=== PATIENT | female | born 2000 | race Caucasian/White ===

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

== ENCOUNTER 2021-01-06 04:18 | Observation (INO) | payer OTHER ==
[2021-01-06 04:46] LABS: Amorphous Sediment,Urine Rare /hpf; Appearance,Urine Cloudy (Clear); Bacteria,Urine Rare /hpf; Bilirubin,Urine Negative (Negative); Blood,Urine Trace (Negative); Color,Urine Light Yellow; Glucose,Urine (UA) Negative (Negative); Ketones,Urine Negative (Negative); Leukocyte Esterase,Urine Large (Negative); Mucus,Urine Rare /hpf; Nitrite,Urine Negative (Negative); PH, Urine 5.5 (5.0-8.0); Protein,Urine Negative (Negative); RBC,Urine 4 /hpf (0-5); Specific Gravity,Urine 1.018 (1.001-1.035); Squamous Epithelial Cell,Urine 5 /hpf (0-4); Urobilinogen,Urine <2.0 mg/dL (<2.0); WBC,Urine 28 /hpf (0-5)
[2021-01-06] MEDS ORDERED: BUTORPHANOL 1 MG/ML 1 ML VIAL IV PRN (04:52)
[2021-01-06] MEDS ORDERED: ONDANSETRON 4 MG/2 ML VIAL IVP STA (04:54)
[2021-01-06] MEDS: LACTATED RINGERS 1,000 ML IV SCH ×3 (05:05→14:39)
--- NOTE | 2021-01-06 06:07 | US ---
EXAMINATION TYPE: US kidneys/renal and bladder DATE OF EXAM: 01/06/2021 COMPARISON: NONE CLINICAL HISTORY: rule out kidney stones. Pt states approx 21 weeks , having increased urinat ion and lower ABD pain EXAM MEASUREMENTS: Right Kidney: 12.0 x 4.8 x 5.3 cm Left Kidney: 10.7 x 5.0 x 4.7 cm Right Kidney: Mild hydronephrosis Left Kidney: Appeared wnl Bladder: Visualized portions appeared wnl, pt voided prior to exam Bilateral Jets seen: No Results given to L&D at time of exam There is and mild right-sided pyelocaliectasis. No left-sided hydronephrosis . No masses are identif ied images saved. The urinary bladder is satisfactorily distended. Bilateral ureteral jets are not seen. IMPRESSION: Mild right-sided hydronephrosis.
[2021-01-06] MEDS: ACETAMINOPHEN TAB 500 MG TAB PO PRN ×3 (09:02→20:38)
[2021-01-06 10:31] LABS: Basophils % (A) 0 %; Eosinophils % (A) 0 %; HCT 31.4 % (34.0-46.0); HGB 10.8 gm/dL (11.4-16.0); Lymphocytes # (A) 1.5 k/uL (1.0-4.8); Lymphocytes % (A) 12 %; MCH 31.4 pg (25.0-35.0); MCHC 34.5 g/dL (31.0-37.0); Mean Platelet Volume 7.9; Monocytes # (A) 0.4 k/uL (0-1.0); Monocytes % (A) 3 %; Neutrophils # (A) 11.1 k/uL (1.3-7.7); Neutrophils % (A) 84 %; Platelet Count 233 k/uL (150-450); RBC 3.45 m/uL (3.80-5.40); RDW 13.2 % (11.5-15.5); WBC 13.2 k/uL (4.0-11.0)
--- NOTE | 2021-01-06 12:48 | P.HPOB ---
History of Present Illness H&P Date: 01/06/21 Chief Complaint: suprapubic pain19 20 year old presents at almost 22 weeks with suprapubic pain, flank pain and groin discomfort. Her urine showed RBCs and WBCs and bacteria. This was sent for culture. She has no fever but does have a slightly elevated wbc count. admitted for pain control and IV antibiotics. Review of Systems All systems: negative Constitutional: Denies chills, Denies fever Eyes: denies blurred vision, denies pain Ears, nose, mouth and throat: Denies headache, Denies sore throat Cardiovascular: Denies chest pain, Denies shortness of breath Respiratory: Denies cough Gastrointestinal: Denies abdominal pain, Denies diarrhea, Denies nausea, Denies vomiting Genitourinary: Denies dysuria, Denies hematuria Musculoskeletal: Denies myalgias Integumentary: Denies pruritus, Denies rash Neurological: Denies numbness, Denies weakness Psychiatric: Denies anxiety, Denies depression Endocrine: Denies fatigue, Denies weight change Past Medical History Past Medical History: Asthma Additional Past Medical History / Comment(s): frequent syncope History of Any Multi-Drug Resistant Organisms: None Reported Past Surgical History: Ear Surgery Smoking Status: Vaper Medications and Allergies Home Medications Medication Instructions Recorded Confirmed Type Pnv No.95/Ferrous Fum/Folic AC 1 tab PO DAILY 01/06/21 01/06/21 History [ Multivitamin Tablet] Allergies Allergy/AdvReac Type Severity Reaction Status Date / Time amoxicillin [Amoxicillin] Allergy Rash/Hives Verified 01/06/21 04:25 Exam Osteopathic Statement: *. No significant issues noted on an osteopathic structural exam other than those noted in the History and Physical/Consult. Vital Signs Temp Pulse Resp BP Pulse Ox 01/06/21 07:45 98.0 F 75 16 101/61 01/06/21 04:39 97.9 F 72 15 137/85 98 Intake and Output 01/05/21 01/06/21 01/06/21 22:59 06:59 14:59 Other: Weight 68.946 kg HEart: RRR Lungs: CTAB Abdomen: soft, tender in the bilateral groin, minimal flank pain and +suprapubic tenderness with palpation. Extremeties: neg amadeo's Results Result Diagrams: 01/06/21 08:12 Abnormal Lab Results - Last 24 Hours (Table) 01/06/21 01/06/21 Range/Units 04:28 08:12 WBC 13.2 H (4.0-11.0) k/uL RBC 3.45 L (3.80-5.40) m/uL Hgb 10.8 L (11.4-16.0) gm/dL Hct 31.4 L (34.0-46.0) % Neutrophils # 11.1 H (1.3-7.7) k/uL Urine Appearance Cloudy H (Clear) Urine Blood Trace H (Negative) Ur Leukocyte Esterase Large H (Negative) Urine WBC 28 H (0-5) /hpf Ur Squamous Epith Cells 5 H (0-4) /hpf Amorphous Sediment Rare H (None) /hpf Urine Bacteria Rare H (None) /hpf Urine Mucus Rare H (None) /hpf Assessment and Plan (1) Current Visit: Yes Status: Acute Code(s): Z34.90 - ENCNTR FOR SUPRVSN OF NORMAL , UNSP, UNSP TRIMESTER SNOMED Code(s): 23811517 (2) Pyelonephritis Current Visit: Yes Status: Acute Code(s): N12 - TUBULO-INTERSTITIAL NEPHRITIS, NOT SPCF ACUTE OR CHRONIC SNOMED Code(s): 42200515 Plan: 1. cont IV fluid 2. IV ancef 1gm q 6 hrs 3. reg diet 4. tylenol for pain 5. FHT q shift
[2021-01-06] MEDS ORDERED: ONDANSETRON 4 MG/2 ML VIAL IVP PRN (19:15)
[2021-01-07] MEDS: LACTATED RINGERS 1,000 ML IV SCH (00:04)
[2021-01-07 00:10] VITALS: BP 116/56; PULSE 73; RESP 16; TEMP 98.2
[2021-01-07] MEDS: ACETAMINOPHEN TAB 500 MG TAB PO PRN (02:34)
[2021-01-07 06:46] LABS: Basophils % (A) 0 %; Eosinophils # (A) 0.2 k/uL (0-0.7); Eosinophils % (A) 2 %; HCT 30.9 % (34.0-46.0); HGB 10.7 gm/dL (11.4-16.0); Lymphocytes # (A) 2.6 k/uL (1.0-4.8); Lymphocytes % (A) 28 %; MCHC 34.7 g/dL (31.0-37.0); MCV 92.1 fL (80.0-100.0); Mean Platelet Volume 7.4; Monocytes # (A) 0.5 k/uL (0-1.0); Monocytes % (A) 6 %; Neutrophils % (A) 63 %; Platelet Count 218 k/uL (150-450); RBC 3.36 m/uL (3.80-5.40); RDW 13.3 % (11.5-15.5); WBC 9.6 k/uL (4.0-11.0)
--- NOTE | 2021-01-07 07:46 | P.DS ---
Providers Date of admission: 01/06/21 06:24 Expected date of discharge: 01/07/21 Attending physician: Carlos Alberto Harper Primary care physician: Stated None - Discharge Diagnosis(es) (1) Current Visit: Yes Status: Acute (2) Pyelonephritis Current Visit: Yes Status: Acute Hospital Course: 20-year-old presented at around 22 weeks gestation complaining of suprapubic, running, flank pain. She also had a white count and evidence of UTI in her urine. Urine was sent for culture patient was started on IV Ancef. After 24 hours of IV antibiotics she's feeling much better. heart tones consistently 140-150. Patient will be discharged home on oral Keflex and was instructed to finish all her antibiotics. She sees me in one week in the office. Plan - Discharge Summary New Discharge Prescriptions: New Cephalexin [Keflex] 500 mg PO Q6HR 1 Days #7 cap No Action Pnv No.95/Ferrous Fum/Folic AC [ Multivitamin Tablet] 1 tab PO DAILY Discharge Medication List Pnv No.95/Ferrous Fum/Folic AC [ Multivitamin Tablet] 1 tab PO DAILY 01/06/21 [History] Cephalexin [Keflex] 500 mg PO Q6HR 1 Days #7 cap 01/07/21 [Rx] Follow up Appointment(s)/Referral(s): Jesica Serna DO [Doctor of Osteopathic Medicine] - 1 Week Discharge Disposition: HOME SELF-CARE
--- NOTE | 2021-01-07 07:53 | P.MSEPDOC ---
Presenting Problems - Arrival Data Date of Arrival on Unit: 01/06/21 Time of Arrival on Unit: 04:18 Mode of Transport: Portable - Complaint OB-Reason for Admission/Chief Complaint: Acute Nausea/Vomiting, Pain Comment: Pt states constant pain that started an hour ago. Rates it 03/11 Medical History - Information : 1 Para: 0 Term: 0 : 0 Abortions: Spontaneous or Elective: 0 Number of Living Children: 0 - Gestational Age Gestational Age by RERE (wks/days): 21 Weeks and 6 Days Review of Systems - Review of Systems Constitutional: No problems Breast: No problems ENT: No problems Cardiovascular: No problems Respiratory: No problems Gastrointestinal: No problems Genitourinary: Urgency Musculoskeletal: No problems Neurological: No problems Skin: No problems Vital Signs - Temperature Temperature: 98.2 F Temperature Source: Oral - Pulse Pulse Oximetery Pulse Rate: 73 Pulse Assessment Method: Automatic Cuff - Respirations Respiratory Rate: 16 Oxygen Delivery Method: Room Air O2 Sat by Pulse Oximetry: 100 - Blood Pressure Right Arm Blood Pressure: 116/56 Blood Pressure Mean: 76 Blood Pressure Source: Automatic Cuff Medical Screen Scoring - Assessment - Baby A Baseline FHR: 140 Physician Notification - Physician Notified Physician: Carlos Alberto Harper Disposition - Disposition OB Disposition: Admit, Observe I agree with the RN Medical Screening Exam: Yes Case reviewed; plan agreed upon as documented in EMR&OBIX.: Yes Diagnosis: URINARY TRACT INFECTION, SITE NOT SPECIFIED
== END 2021-01-07 09:23 | disposition home or self-care (01) ==
LOC: FBPOP 04:18 → 4FBP 06:24 → INTOOBSV 06:24 → UNDODISIN 01-07 09:23
PROVIDERS: ADMIT Obstetrics & Gynecology; ATTEND Obstetrics & Gynecology
DX: O23.02 Infections of kidney in pregnancy, second trimester (principal); Z3A.21 21 weeks gestation of pregnancy; O99.512 Diseases of the respiratory system complicating pregnancy, second trimester; N13.30 Unspecified hydronephrosis; J45.909 Unspecified asthma, uncomplicated; O99.332 Smoking (tobacco) complicating pregnancy, second trimester; O26.892 Other specified pregnancy related conditions, second trimester; F17.290 Nicotine dependence, other tobacco product, uncomplicated; Z88.0 Allergy status to penicillin; Z86.79 Personal history of other diseases of the circulatory system; Z98.890 Other specified postprocedural states
CPT/HCPCS: 96361; 96365; 96366; 96375; 85025 ×2; 81001; 87086; 76770; G0463; G0378 ×2; J0595; J2405; J0690 ×2; 96374; 99214

== ENCOUNTER 2021-02-26 12:01 | Outpatient (CLI) | payer OTHER ==
[2021-02-26 13:15] LABS: Appearance,Urine Clear (Clear); Bacteria,Urine Rare /hpf; Bilirubin,Urine Negative (Negative); Blood,Urine Negative (Negative); Color,Urine Yellow; Glucose,Urine (UA) Negative (Negative); Hyaline Casts,Urine 1 /lpf (0-2); Ketones,Urine 2+ (Negative); Leukocyte Esterase,Urine Moderate (Negative); Mucus,Urine Rare /hpf; Nitrite,Urine Negative (Negative); PH, Urine 5.5 (5.0-8.0); Protein,Urine Negative (Negative); RBC,Urine <1 /hpf (0-5); Specific Gravity,Urine 1.021 (1.001-1.035); Squamous Epithelial Cell,Urine 3 /hpf (0-4); Urobilinogen,Urine <2.0 mg/dL (<2.0); WBC,Urine 2 /hpf (0-5)
[2021-02-26 13:53] VITALS: BP 117/58; PULSE 83; RESP 16; TEMP 97.2
--- NOTE | 2021-03-08 13:10 | P.MSEPDOC ---
Presenting Problems - Arrival Data Date of Arrival on Unit: 02/26/21 Time of Arrival on Unit: 12:01 Mode of Transport: Ambulatory - Complaint OB-Reason for Admission/Chief Complaint: Pain Medical History - Information : 1 Para: 0 Term: 0 : 0 Abortions: Spontaneous or Elective: 0 Number of Living Children: 0 - Gestational Age Gestational Age by RERE (wks/days): 29 Weeks and 1 Days Review of Systems - Review of Systems Constitutional: No problems Breast: No problems ENT: No problems Cardiovascular: No problems Respiratory: No problems Gastrointestinal: No problems Genitourinary: No problems Musculoskeletal: No problems Neurological: No problems Skin: No problems Vital Signs - Temperature Temperature: 97.2 F Temperature Source: Temporal Artery Scan - Pulse Right Brachial Pulse Rate: 83 Pulse Assessment Method: Automatic Cuff - Respirations Respiratory Rate: 16 Oxygen Delivery Method: Room Air O2 Sat by Pulse Oximetry: 96 - Blood Pressure Right Arm Blood Pressure: 117/58 Blood Pressure Mean: 77 Blood Pressure Source: Automatic Cuff Medical Screen Scoring - Assessment - Baby A Baseline FHR: 125 Heart Rate - NICHD Category: Category I (Normal) NST: Reactive Physician Notification - Physician Notified Physician Notified Date: 02/26/21 Physician Notified Time: 13:38 Physician: Carlos Alberto Harper New Order Received: Yes - Notification Comment Comment: Dr. Harper called and given report on pt. aware of pt complaints. VS WNL. Reactive NST. Orders recieved to send UA and to call with results. Maternal Triage Index - Urgent/Priority 2 Urgent Priority 2: Yes Provider Notified: Carlos Alberto Harper Provider Notified Time: 12:41 Criteria Met for Priority 2: Abdominal pain. Pain 7/10. Disposition - Disposition OB Disposition: Discharge to home Discharge Date: 02/26/21 Discharge Time: 13:45 I agree with the RN Medical Screening Exam: Yes Case reviewed; plan agreed upon as documented in EMR&OBIX.: Yes Diagnosis: RELATED CONDITIONS, UNSPECIFIED, THIRD TRIMESTER
== END 2021-02-26 13:45 | disposition home or self-care (01) ==
LOC: FBPOP 12:01
PROVIDERS: ATTEND Obstetrics & Gynecology
DX: O26.93 Pregnancy related conditions, unspecified, third trimester (principal); Z3A.29 29 weeks gestation of pregnancy
CPT/HCPCS: 59025; 81001; G0463; 99213

== ENCOUNTER 2021-04-05 05:00 | Outpatient (CLI) | payer OTHER ==
[2021-04-05 05:54] VITALS: BP 119/68; PULSE 70; RESP 16; TEMP 96.8
--- NOTE | 2021-04-05 07:01 | P.MSEPDOC ---
Presenting Problems - Arrival Data Date of Arrival on Unit: 04/05/21 Time of Arrival on Unit: 05:00 Mode of Transport: Wheelchair - Complaint OB-Reason for Admission/Chief Complaint: Decreased Movement Comment: Patient arrives to triage and states she was at work and squatting around 0350. and got a sharp pain in her left lower abdomen. Pain lasted for ten minutes. Once the pain went away, she was unable to feel the baby move. Patient denies bleeding and leaking fluid. Pain is currently 0/10 but states she still has not felt the baby move. Medical History - Information : 1 Para: 0 Term: 0 : 0 Abortions: Spontaneous or Elective: 0 Number of Living Children: 0 - Gestational Age Gestational Age by RERE (wks/days): 34 Weeks and 4 Days Review of Systems - Review of Systems Constitutional: No problems Breast: No problems ENT: No problems Cardiovascular: No problems Respiratory: No problems Gastrointestinal: No problems Genitourinary: No problems Musculoskeletal: No problems Neurological: No problems Skin: No problems Vital Signs - Temperature Temperature: 96.8 F Temperature Source: Temporal Artery Scan - Pulse Right Brachial Pulse Rate: 70 Pulse Assessment Method: Automatic Cuff - Respirations Respiratory Rate: 16 Oxygen Delivery Method: Room Air O2 Sat by Pulse Oximetry: 100 - Blood Pressure Right Arm Blood Pressure: 119/68 Blood Pressure Mean: 85 Blood Pressure Source: Automatic Cuff Medical Screen Scoring - Assessment - Baby A Baseline FHR: 120 Heart Rate - NICHD Category: Category I (Normal) NST: Reactive Physician Notification - Physician Notified Physician Notified Date: 04/05/21 Physician Notified Time: 05:27 Physician: Elijah Morgan New Order Received: Yes - Notification Comment Comment: Dr. Morgan called. RN reported that patient had not felt movement since. squatting at work and getting a sharp pain in the lower left abdomen, which has since resolved. Patient states infant is usually very active at this time and she was scared so she came in. heart tones are catergory I, baseline of 120, reactive NST. Patients vital signs WNL. Patient is to be discharged home with instructions to keep follow up appt. Patient updated and in agreement. Maternal Triage Index - Urgent/Priority 2 Urgent Priority 2: Yes Provider Notified: Elijah Morgan Provider Notified Time: 05:27 Criteria Met for Priority 2: c/o decreased movement Disposition - Disposition OB Disposition: Discharge to home Discharge Date: 04/05/21 Discharge Time: 05:45 I agree with the RN Medical Screening Exam: Yes Case reviewed; plan agreed upon as documented in EMR&OBIX.: Yes Diagnosis: DECREASED MOVEMENTS, THIRD TRIMESTER, FETUS 1
== END 2021-04-05 05:45 | disposition home or self-care (01) ==
LOC: FBPOP 05:00
PROVIDERS: ATTEND Obstetrics & Gynecology
DX: O36.8131 Decreased fetal movements, third trimester, fetus 1 (principal); Z3A.34 34 weeks gestation of pregnancy
CPT/HCPCS: 59025; G0463; 99213

== ENCOUNTER 2021-04-22 11:30 | Emergency (ER) | payer OTHER ==
[2021-04-22 11:46] VITALS: TEMP 98
[2021-04-22] MEDS ORDERED: SODIUM CHLORIDE 0.9% 1,000 ML IV STA (12:07)
[2021-04-22 12:28] LABS: Basophils % (A) 0 %; Eosinophils # (A) 0.1 k/uL (0-0.7); Eosinophils % (A) 1 %; HCT 37.4 % (34.0-46.0); HGB 12.5 gm/dL (11.4-16.0); Lymphocytes # (A) 1.8 k/uL (1.0-4.8); Lymphocytes % (A) 21 %; MCH 30.7 pg (25.0-35.0); MCHC 33.5 g/dL (31.0-37.0); MCV 91.9 fL (80.0-100.0); Mean Platelet Volume 8.2; Monocytes # (A) 0.4 k/uL (0-1.0); Monocytes % (A) 5 %; Neutrophils # (A) 6.2 k/uL (1.3-7.7); Neutrophils % (A) 73 %; Platelet Count 225 k/uL (150-450); RBC 4.07 m/uL (3.80-5.40); RDW 13.2 % (11.5-15.5); WBC 8.5 k/uL (4.0-11.0)
--- NOTE | 2021-04-22 12:28 | ED ---
General Adult HPI - General Chief complaint: Syncope Stated complaint: 37 wks preg, syncope Time Seen by Provider: 04/22/21 12:06 Source: patient, RN notes reviewed, old records reviewed Mode of arrival: wheelchair Limitations: no limitations - History of Present Illness Initial comments: 21-year-old female approximately 37 weeks presenting with syncopal episode. She states she's had recurrent episodes of syncope in the past and today this was during a dental cleaning. She denied any preceding chest pain or palpitations. No dyspnea. No vomiting or diarrhea. No fevers. No abdominal pain. No vaginal bleeding. No dysuria or hematuria. She feels completely normal at this time and states has happened many times in the past. - Related Data Home Medications Medication Instructions Recorded Confirmed Pnv No.95/Ferrous Fum/Folic AC 1 tab PO HS 01/06/21 04/22/21 [ Multivitamin Tablet] Allergies Allergy/AdvReac Type Severity Reaction Status Date / Time amoxicillin [Amoxicillin] Allergy Rash/Hives Verified 04/22/21 13:04 Review of Systems ROS Statement: Those systems with pertinent positive or pertinent negative responses have been documented in the HPI. ROS Other: All systems not noted in ROS Statement are negative. Past Medical History Past Medical History: Asthma Additional Past Medical History / Comment(s): frequent syncope History of Any Multi-Drug Resistant Organisms: None Reported Past Surgical History: Ear Surgery Past Psychological History: Anxiety, Bipolar, Depression Smoking Status: Never smoker Past Alcohol Use History: None Reported Past Drug Use History: None Reported General Exam Limitations: no limitations General appearance: alert, in no apparent distress Head exam: Present: atraumatic, normocephalic Eye exam: Present: normal appearance, PERRL ENT exam: Present: mucous membranes dry Neck exam: Present: normal inspection. Absent: tenderness, meningismus Respiratory exam: Present: normal lung sounds bilaterally. Absent: respiratory distress, wheezes Cardiovascular Exam: Present: regular rate, normal rhythm GI/Abdominal exam: Present: soft, other (gravid). Absent: distended, tenderness Extremities exam: Present: normal inspection, normal capillary refill. Absent: pedal edema, calf tenderness Back exam: Present: normal inspection Neurological exam: Present: alert, oriented X3, CN II-XII intact. Absent: motor sensory deficit Psychiatric exam: Present: normal affect, normal mood Skin exam: Present: warm, dry, intact Course Vital Signs 04/22/21 11:42 Temperature 98.0 F Pulse Rate 71 Respiratory 19 Rate Blood Pressure 117/71 O2 Sat by Pulse 97 Oximetry EKG Findings - EKG Comments: EKG Findings:: EKG: Rate of 71, IL interval 120, QRS duration 80, QTC 432, no ST segment elevation,. Medical Decision Making - Medical Decision Making 21-year-old female with presented with momentary episode of syncope while in the dentist's chair, proximally 10 seconds. Patient is currently 37 weeks with no related complaints or complications. She feels completely normal at the time my evaluation with stable vitals. EKG sinus rhythm. Laboratory tests including CBC, CMP, urinalysis is unremarkable. heart tones were obtained by the obstetrics nursing. 120 to 130. I did discuss case with Dr. Serna, who will follow with the patient as an outpatient. - Lab Data Result diagrams: 04/22/21 12:13 04/22/21 12:13 Lab Results 04/22/21 04/22/21 04/22/21 Range/Units 12:13 12:13 12:13 WBC 8.5 (4.0-11.0) k/uL RBC 4.07 (3.80-5.40) m/uL Hgb 12.5 (11.4-16.0) gm/dL Hct 37.4 (34.0-46.0) % MCV 91.9 (80.0-100.0) fL MCH 30.7 (25.0-35.0) pg MCHC 33.5 (31.0-37.0) g/dL RDW 13.2 (11.5-15.5) % Plt Count 225 (150-450) k/uL MPV 8.2 Neutrophils % 73 % Lymphocytes % 21 % Monocytes % 5 % Eosinophils % 1 % Basophils % 0 % Neutrophils # 6.2 (1.3-7.7) k/uL Lymphocytes # 1.8 (1.0-4.8) k/uL Monocytes # 0.4 (0-1.0) k/uL Eosinophils # 0.1 (0-0.7) k/uL Basophils # 0.0 (0-0.2) k/uL PT 9.5 (9.0-12.0) sec INR 0.9 (<1.2) APTT 21.4 L (22.0-30.0) sec Sodium (137-145) mmol/L Potassium (3.5-5.1) mmol/L Chloride (98-107) mmol/L Carbon Dioxide (22-30) mmol/L Anion Gap mmol/L BUN (7-17) mg/dL Creatinine (0.52-1.04) mg/dL Est GFR (CKD-EPI)AfAm (>60 ml/min/1.73 sqM) Est GFR (CKD-EPI)NonAf (>60 ml/min/1.73 sqM) Glucose (74-99) mg/dL Calcium (8.4-10.2) mg/dL Magnesium (1.6-2.3) mg/dL Total Bilirubin (0.2-1.3) mg/dL AST (14-36) U/L ALT (4-34) U/L Alkaline Phosphatase (38-126) U/L Troponin I (0.000-0.034) ng/mL Total Protein (6.3-8.2) g/dL Albumin (3.5-5.0) g/dL Urine Color Yellow Urine Appearance Cloudy H (Clear) Urine pH 7.0 (5.0-8.0) Ur Specific [place] 1.013 (1.001-1.035) Urine Protein Trace H (Negative) Urine Glucose (UA) Negative (Negative) Urine Ketones Negative (Negative) Urine Blood Negative (Negative) Urine Nitrite Negative (Negative) Urine Bilirubin Negative (Negative) Urine Urobilinogen <2.0 (<2.0) mg/dL Ur Leukocyte Esterase Large H (Negative) Urine RBC 1 (0-5) /hpf Urine WBC 5 (0-5) /hpf Ur Squamous Epith Cells 4 (0-4) /hpf Urine Bacteria Occasional H (None) /hpf Urine Mucus Occasional H (None) /hpf 04/22/21 04/22/21 Range/Units 12:13 12:13 WBC (4.0-11.0) k/uL RBC (3.80-5.40) m/uL Hgb (11.4-16.0) gm/dL Hct (34.0-46.0) % MCV (80.0-100.0) fL MCH (25.0-35.0) pg MCHC (31.0-37.0) g/dL RDW (11.5-15.5) % Plt Count (150-450) k/uL MPV Neutrophils % % Lymphocytes % % Monocytes % % Eosinophils % % Basophils % % Neutrophils # (1.3-7.7) k/uL Lymphocytes # (1.0-4.8) k/uL Monocytes # (0-1.0) k/uL Eosinophils # (0-0.7) k/uL Basophils # (0-0.2) k/uL PT (9.0-12.0) sec INR (<1.2) APTT (22.0-30.0) sec Sodium 135 L (137-145) mmol/L Potassium 4.1 (3.5-5.1) mmol/L Chloride 107 (98-107) mmol/L Carbon Dioxide 22 (22-30) mmol/L Anion Gap 6 mmol/L BUN 6 L (7-17) mg/dL Creatinine 0.45 L (0.52-1.04) mg/dL Est GFR (CKD-EPI)AfAm >90 (>60 ml/min/1.73 sqM) Est GFR (CKD-EPI)NonAf >90 (>60 ml/min/1.73 sqM) Glucose 78 (74-99) mg/dL Calcium 8.5 (8.4-10.2) mg/dL Magnesium 1.7 (1.6-2.3) mg/dL Total Bilirubin 0.4 (0.2-1.3) mg/dL AST 26 (14-36) U/L ALT 14 (4-34) U/L Alkaline Phosphatase 102 (38-126) U/L Troponin I <0.012 (0.000-0.034) ng/mL Total Protein 5.9 L (6.3-8.2) g/dL Albumin 3.2 L (3.5-5.0) g/dL Urine Color Urine Appearance (Clear) Urine pH (5.0-8.0) Ur Specific [place] (1.001-1.035) Urine Protein (Negative) Urine Glucose (UA) (Negative) Urine Ketones (Negative) Urine Blood (Negative) Urine Nitrite (Negative) Urine Bilirubin (Negative) Urine Urobilinogen (<2.0) mg/dL Ur Leukocyte Esterase (Negative) Urine RBC (0-5) /hpf Urine WBC (0-5) /hpf Ur Squamous Epith Cells (0-4) /hpf Urine Bacteria (None) /hpf Urine Mucus (None) /hpf Disposition Clinical Impression: Vasovagal syncope Disposition: HOME SELF-CARE Condition: Good Is patient prescribed a controlled substance at d/c from ED?: No Referrals: Efren Han MD [Primary Care Provider] - 1-2 days Jesica Serna DO [Doctor of Osteopathic Medicine] - 1-2 days
[2021-04-22 12:42] LABS: ALT 14 U/L (4-34); AST 26 U/L (14-36); African American GFR (CKD) >90 (>60 ml/min/1.73 sqM); Albumin 3.2 g/dL (3.5-5.0); Alkaline Phosphatase 102 U/L (38-126); Anion Gap 6 mmol/L; Blood Urea Nitrogen 6 mg/dL (7-17); Calcium 8.5 mg/dL (8.4-10.2); Carbon Dioxide 22 mmol/L (22-30); Chloride 107 mmol/L (98-107); Glucose 78 mg/dL (74-99); Magnesium 1.7 mg/dL (1.6-2.3); Non-African American GFR(CKD) >90 (>60 ml/min/1.73 sqM); Potassium 4.1 mmol/L (3.5-5.1); Sodium 135 mmol/L (137-145); Total Bilirubin 0.4 mg/dL (0.2-1.3); Total Protein 5.9 g/dL (6.3-8.2)
[2021-04-22 12:45] LABS: Appearance,Urine Cloudy (Clear); Bacteria,Urine Occasional /hpf; Bilirubin,Urine Negative (Negative); Blood,Urine Negative (Negative); Color,Urine Yellow; Glucose,Urine (UA) Negative (Negative); Ketones,Urine Negative (Negative); Leukocyte Esterase,Urine Large (Negative); Mucus,Urine Occasional /hpf; Nitrite,Urine Negative (Negative); Protein,Urine Trace (Negative); RBC,Urine 1 /hpf (0-5); Specific Gravity,Urine 1.013 (1.001-1.035); Squamous Epithelial Cell,Urine 4 /hpf (0-4); Urobilinogen,Urine <2.0 mg/dL (<2.0); WBC,Urine 5 /hpf (0-5)
[2021-04-22 12:46] LABS: INR 0.9 (<1.2); Prothrombin Time 9.5 sec (9.0-12.0)
[2021-04-22 12:55] LABS: Partial Thromboplastin Time 21.4 sec (22.0-30.0)
[2021-04-22 14:15] VITALS: BP 108/65; PULSE 73; RESP 16
== END 2021-04-22 14:17 | disposition home or self-care (01) ==
LOC: EC 11:30
DX: O99.891 Other specified diseases and conditions complicating pregnancy (principal); O99.513 Diseases of the respiratory system complicating pregnancy, third trimester; R55 Syncope and collapse; J45.909 Unspecified asthma, uncomplicated; Z3A.37 37 weeks gestation of pregnancy; Z88.0 Allergy status to penicillin
CPT/HCPCS: 36415; 80053; 81001; 83735; 84484; 85025; 85610; 85730; 93005; 96360; 99284

== ENCOUNTER 2021-05-12 07:24 | Inpatient (IN) | payer OTHER ==
[2021-05-12] MEDS ORDERED: LIDOCAINE 0.5% (PF) 5 MG/ML (50 ML SDV) SQ PRN (08:16)
[2021-05-12] MEDS ORDERED: CARBOPROST TROMETHAMINE 250 MCG/ML 1 ML AMP IM PRN (08:16)
[2021-05-12] MEDS ORDERED: TERBUTALINE 1 MG/ML VIAL SQ PRN (08:16)
[2021-05-12] MEDS ORDERED: METHYLERGONOVINE 0.2 MG/ML 1 ML AMP IM PRN (08:16)
[2021-05-12] MEDS ORDERED: OXYTOCIN 10 UNIT/ML 1 ML VIAL IM PRN (08:16)
[2021-05-12] MEDS ORDERED: OXYTOCIN 30 UNITS/500 ML NS 30 UNIT in SALINE 1 500ML.BAG IV SCH ×2 (08:30→12:30)
[2021-05-12] MEDS: LACTATED RINGERS 1,000 ML IV SCH ×2 (08:45→09:36)
[2021-05-12] MEDS ORDERED: SODIUM CHLORIDE 0.9% 100 ML BAG ONE (09:11)
[2021-05-12] MEDS ORDERED: fentaNYL (PF) 50 MCG/ML 5 ML AMP ONE (09:11)
[2021-05-12] MEDS ORDERED: ROPIVACAINE 5MG/ML 20ML VIAL ONE (09:11)
[2021-05-12 09:13] LABS: Basophils % (A) 0 %; Eosinophils # (A) 0.1 k/uL (0-0.7); Eosinophils % (A) 1 %; HCT 37.2 % (34.0-46.0); HGB 13.2 gm/dL (11.4-16.0); Lymphocytes # (A) 3.1 k/uL (1.0-4.8); Lymphocytes % (A) 24 %; MCH 31.2 pg (25.0-35.0); MCHC 35.4 g/dL (31.0-37.0); MCV 88.3 fL (80.0-100.0); Mean Platelet Volume 8.5; Monocytes # (A) 0.7 k/uL (0-1.0); Monocytes % (A) 5 %; Neutrophils % (A) 69 %; Platelet Count 265 k/uL (150-450); RBC 4.22 m/uL (3.80-5.40); RDW 13.8 % (11.5-15.5)
[2021-05-12] MEDS ORDERED: ZOLPIDEM 5 MG TAB PO PRN (12:21)
[2021-05-12] MEDS ORDERED: SIMETHICONE 80 MG CHEWABLE PO PRN (12:21)
[2021-05-12] MEDS ORDERED: BENZOCAINE/MENTHOL SPRAY 1 GM/SPRAY AEROSOL TOPICAL PRN (12:21)
[2021-05-12] MEDS ORDERED: MEASLES-MUMPS-RUBELLA VACC/PF 12,500 UNIT/0.5 ML VIAL SQ ONE (12:21)
[2021-05-12] MEDS ORDERED: ACETAMINOPHEN TAB 325 MG TAB PO PRN (12:21)
[2021-05-12] MEDS ORDERED: diphenhydrAMINE 25 MG CAP PO PRN (12:21)
[2021-05-12] MEDS ORDERED: diphenhydrAMINE 50 MG CAP PO PRN (12:21)
--- NOTE | 2021-05-12 12:27 | P.HPOB ---
History of Present Illness H&P Date: 05/12/21 Chief Complaint: labor, SROM 21-year-old presents at 39 weeks and 6 days in active labor. Her cervix is 5 cm dilated and her water broke at 7:30 in the morning in triage, clear fluid noted. heart tones 140 with moderate variability and reactive. She is jose every few minutes. Review of Systems All systems: negative Constitutional: Denies chills, Denies fever Eyes: denies blurred vision, denies pain Ears, nose, mouth and throat: Denies headache, Denies sore throat Cardiovascular: Denies chest pain, Denies shortness of breath Respiratory: Denies cough Gastrointestinal: Denies abdominal pain, Denies diarrhea, Denies nausea, Denies vomiting Genitourinary: Denies dysuria, Denies hematuria Musculoskeletal: Denies myalgias Integumentary: Denies pruritus, Denies rash Neurological: Denies numbness, Denies weakness Psychiatric: Denies anxiety, Denies depression Endocrine: Denies fatigue, Denies weight change Past Medical History Past Medical History: Asthma Additional Past Medical History / Comment(s): frequent syncope. Obstetric history: Blood type is A+, and buys negative, rubella nonimmune, hepatitis B negative, HIV nonreactive, GBS negative. History of Any Multi-Drug Resistant Organisms: None Reported Past Surgical History: Ear Surgery Past Anesthesia/Blood Transfusion Reactions: No Reported Reaction Past Psychological History: Anxiety, Bipolar, Depression Smoking Status: Never smoker Past Alcohol Use History: None Reported Past Drug Use History: None Reported - Past Family History Mother Family Medical History: No Reported History Medications and Allergies Home Medications Medication Instructions Recorded Confirmed Type Pnv No.95/Ferrous Fum/Folic AC 1 tab PO HS 01/06/21 05/12/21 History [ Multivitamin Tablet] Allergies Allergy/AdvReac Type Severity Reaction Status Date / Time amoxicillin [Amoxicillin] Allergy Rash/Hives Verified 05/12/21 07:48 Exam Osteopathic Statement: *. No significant issues noted on an osteopathic structural exam other than those noted in the History and Physical/Consult. Vital Signs Temp Pulse Resp BP Pulse Ox 05/12/21 08:25 98.4 F 85 16 110/64 99 05/12/21 07:47 97.8 F 74 16 115/70 96 Intake and Output 05/11/21 05/12/21 05/12/21 22:59 06:59 14:59 Other: Weight 79.379 kg Heart: Regular rate and rhythm Lungs: Clear to auscultation bilaterally Abdomen: Soft, nontender Extremities: Negative Homans sign Results Result Diagrams: 05/12/21 08:45 Abnormal Lab Results - Last 24 Hours (Table) 05/12/21 Range/Units 08:45 WBC 13.0 H (4.0-11.0) k/uL Neutrophils # 9.0 H (1.3-7.7) k/uL Assessment and Plan (1) Normal labor Current Visit: Yes Status: Acute Code(s): O80 - ENCOUNTER FOR FULL-TERM UNCOMPLICATED DELIVERY; Z37.9 - OUTCOME OF DELIVERY, UNSPECIFIED SNOMED Code(s): 68551458 (2) Spontaneous rupture of membranes Current Visit: Yes Status: Acute Code(s): IPM2571 - SNOMED Code(s): 367854878 Plan: 1. Admit to family place 2. Epidural for pain management 3. Anticipate normal vaginal delivery
--- NOTE | 2021-05-12 12:28 | P.PROBDLV ---
Vaginal Delivery Note - . Vaginal Delivery Note: 21-year-old presents at 39 weeks and 6 days in active labor. Her cervix is 5 cm dilated and her water broke at 7:30 in the morning in triage, clear fluid noted. heart tones 140 with moderate variability and reactive. She is jose every few minutes. When patient was comfortable with epidural she was completely dilated at 10:40 AM. She pushed, delivered a viable male over intact perineum under epidural anesthesia level of 3 AM. Head deli lizzeth OA, nuchal cord 1 easily reduced, anterior shoulder delivered gentle downward guidance followed by posterior shoulder and rest of body. Nose and mouth bulb suctioned, cord clamped and cut, infant placed on mother's abdomen. Apgars 8, 9, weight 7 pounds 2.8 ounces. Placenta delivered spontaneously, intact with three-vessel cord at 11:07 AM. Vagina, cervix, perineum inspected. First-degree left lateral laceration was repaired with 3-0 Vicryl and bilateral labial tears were repaired with 3-0 Vicryl. Estimated blood loss 100 mL mother and baby in stable condition.
--- NOTE | 2021-05-12 12:29 | P.MSEPDOC ---
Presenting Problems - Arrival Data Date of Arrival on Unit: 05/12/21 Time of Arrival on Unit: 08:45 Mode of Transport: Ambulatory - Complaint OB-Reason for Admission/Chief Complaint: Possible Onset of Labor, Rule Out SROM Medical History - Information : 1 Para: 0 Term: 0 : 0 Abortions: Spontaneous or Elective: 0 Number of Living Children: 0 - Gestational Age Gestational Age by RERE (wks/days): 39 Weeks and 6 Days Review of Systems - Review of Systems Constitutional: No problems Breast: No problems ENT: No problems Cardiovascular: No problems Respiratory: No problems Gastrointestinal: No problems Genitourinary: No problems Musculoskeletal: No problems Neurological: No problems Skin: No problems Vital Signs - Temperature Temperature: 98.4 F Temperature Source: Temporal Artery Scan - Pulse Right Apical Pulse Rate: 85 Pulse Assessment Method: Automatic Cuff - Respirations Respiratory Rate: 16 Oxygen Delivery Method: Room Air O2 Sat by Pulse Oximetry: 99 - Blood Pressure Right Arm Blood Pressure: 110/64 Blood Pressure Mean: 79 Blood Pressure Source: Automatic Cuff Medical Screen Scoring - Cervical Exam Dilation (cm): 5.5 Effacement (%): 90 Station: -1 Membranes: Ruptured - Uterine Contractions Intensity: Moderate Resting: Soft to palpation - Assessment - Baby A Baseline FHR: 130 Physician Notification - Physician Notified Physician Notified Date: 05/12/21 Physician Notified Time: 07:30 Physician: Jesica Serna Order Received: Yes - Notification Comment Comment: adm pt for labor Maternal Triage Index - Non-Urgent/Priority 4 Non-Urgent Priority 4: Yes Criteria Met for Priority 4: earliy labor. srom at 0730 while in triage room. positive amnisure Disposition - Disposition OB Disposition: Admit, LDRP Suite I agree with the RN Medical Screening Exam: Yes Case reviewed; plan agreed upon as documented in EMR&OBIX.: Yes Diagnosis: ENCOUNTER FOR FULL-TERM UNCOMPLICATED DELIVERY
[2021-05-12] MEDS: IBUPROFEN 600 MG TAB PO PRN (20:12)
[2021-05-12] MEDS: SENNOSIDES-DOCUSATE SODIUM 1 EACH TAB PO SCH (20:12)
[2021-05-12 20:40] VITALS: RESP 18
[2021-05-13] MEDS: IBUPROFEN 600 MG TAB PO PRN ×2 (02:14→07:58)
[2021-05-13] MEDS: LACTATED RINGERS 1,000 ML IV SCH (04:51)
[2021-05-13 06:48] LABS: Basophils % (A) 0 %; Eosinophils # (A) 0.1 k/uL (0-0.7); Eosinophils % (A) 1 %; HCT 30.7 % (34.0-46.0); HGB 10.5 gm/dL (11.4-16.0); Lymphocytes # (A) 3.2 k/uL (1.0-4.8); Lymphocytes % (A) 25 %; MCH 30.9 pg (25.0-35.0); MCHC 34.3 g/dL (31.0-37.0); MCV 90.2 fL (80.0-100.0); Mean Platelet Volume 8.3; Monocytes # (A) 0.7 k/uL (0-1.0); Monocytes % (A) 6 %; Neutrophils # (A) 8.5 k/uL (1.3-7.7); Neutrophils % (A) 67 %; Platelet Count 226 k/uL (150-450); RDW 13.8 % (11.5-15.5); WBC 12.7 k/uL (4.0-11.0)
[2021-05-13] MEDS: SENNOSIDES-DOCUSATE SODIUM 1 EACH TAB PO SCH (08:01)
--- NOTE | 2021-05-13 08:35 | P.DS ---
Providers Date of admission: 05/12/21 08:05 Expected date of discharge: 05/13/21 Attending physician: Jesica Serna Primary care physician: Stated None - Discharge Diagnosis(es) (1) Normal labor Current Visit: Yes Status: Resolved (2) Spontaneous rupture of membranes Current Visit: Yes Status: Resolved (3) Normal vaginal delivery Current Visit: Yes Status: Acute Hospital Course: Patient presented in active labor. She underwent normal vaginal delivery. course was uncomplicated. She denies nausea, vomiting, chest pain, shortness of breath or calf pain. She'll be discharged home day #1 i n stable condition to follow-up with me in 6 weeks. Plan - Discharge Summary New Discharge Prescriptions: New Ibuprofen [Motrin] 600 mg PO Q6HR PRN #30 tab PRN Reason: Mild Pain (Scale 1 To 3) No Action Pnv No.95/Ferrous Fum/Folic AC [ Multivitamin Tablet] 1 tab PO HS Discharge Medication List Pnv No.95/Ferrous Fum/Folic AC [ Multivitamin Tablet] 1 tab PO HS 01/06/21 [History] Ibuprofen [Motrin] 600 mg PO Q6HR PRN #30 tab 05/13/21 [Rx] Follow up Appointment(s)/Referral(s): Jesica Serna DO [Doctor of Osteopathic Medicine] - 6 Weeks Discharge Disposition: HOME SELF-CARE
[2021-05-13 10:28] VITALS: BP 127/74; PULSE 74; TEMP 97.7
== END 2021-05-13 15:07 | disposition home or self-care (01) | DRG 807 ==
LOC: FBPOP 07:24 → 4FBP 08:05
PROVIDERS: ADMIT Obstetrics & Gynecology; ATTEND Obstetrics & Gynecology
PROC: 10E0XZZ Delivery of Products of Conception, External Approach (ICD-10-PCS; principal; 2021-05-12)
DX: O69.81X0 Labor and delivery complicated by cord around neck, without compression, not applicable or unspecified (principal); Z37.0 Single live birth; O99.344 Other mental disorders complicating childbirth; F31.9 Bipolar disorder, unspecified; F41.9 Anxiety disorder, unspecified; J45.909 Unspecified asthma, uncomplicated; O99.52 Diseases of the respiratory system complicating childbirth; Z3A.39 39 weeks gestation of pregnancy
CPT/HCPCS: 59025; 84112; 85025; 86850; 86900; 86901; 90707; 99213

== ENCOUNTER 2021-06-11 22:37 | Emergency (ER) | payer OTHER ==
[2021-06-11 23:15] VITALS: TEMP 97.9
[2021-06-12] MEDS ORDERED: HYDROCORTISONE 2.5% RECTAL CREAM 30 GM TUBE RECTAL STA (00:12)
[2021-06-12] MEDS ORDERED: metroNIDAZOLE 500 MG TAB PO STA (01:02)
--- NOTE | 2021-06-12 01:05 | ED ---
General Adult HPI - General Chief complaint: Recheck/Abnormal Lab/Rx Stated complaint: female gu Time Seen by Provider: 06/11/21 23:28 Source: patient Mode of arrival: ambulatory Limitations: no limitations - History of Present Illness Initial comments: 21-year-old female presents to the emergency room for a chief complaint of hemorrhoids. Patient states that she had a baby 1 month ago. States that she has had hemorrhoids to her . States they're not going away. She does have an appointment with her surgeon next week but feels that she needs to be starting something for these so presented to the emergency room. Patient also having some vaginal discharge. This started 3 or 4 days ago. No abdominal pain. No fevers. States it does have a foul odor. Patient denies any concern for STDs at this time. States she has not had intercourse since her .Patient has no other complaints at this time including shortness of breath, chest pain, abdominal pain, nausea or vomiting, headache, or visual changes. - Related Data Home Medications Medication Instructions Recorded Confirmed Pnv No.95/Ferrous Fum/Folic AC 1 tab PO HS 01/06/21 05/12/21 [ Multivitamin Tablet] Previous Rx's Medication Instructions Recorded Ibuprofen [Motrin] 600 mg PO Q6HR PRN #30 tab 05/13/21 Hydrocortisone [Anusol-Hc] 1 applic RECTAL TID #30 gm 06/12/21 metroNIDAZOLE [Flagyl] 500 mg PO BID #14 tab 06/12/21 Allergies Allergy/AdvReac Type Severity Reaction Status Date / Time amoxicillin [Amoxicillin] Allergy Rash/Hives Verified 06/11/21 23:11 Review of Systems ROS Statement: Those systems with pertinent positive or pertinent negative responses have been documented in the HPI. ROS Other: All systems not noted in ROS Statement are negative. Past Medical History Past Medical History: Asthma Additional Past Medical History / Comment(s): frequent syncope. Obstetric history: Blood type is A+, and buys negative, rubella nonimmune, hepatitis B negative, HIV nonreactive, GBS negative. History of Any Multi-Drug Resistant Organisms: None Reported Past Surgical History: Ear Surgery Past Anesthesia/Blood Transfusion Reactions: No Reported Reaction Past Psychological History: Anxiety, Bipolar, Depression Smoking Status: Vaper Past Alcohol Use History: None Reported Past Drug Use History: None Reported - Past Family History Mother Family Medical History: No Reported History General Exam Limitations: no limitations General appearance: alert, in no apparent distress Head exam: Present: atraumatic Eye exam: Present: normal appearance, PERRL, EOMI. Absent: scleral icterus, conjunctival injection ENT exam: Present: normal exam, mucous membranes moist Neck exam: Present: normal inspection, full ROM. Absent: tenderness Respiratory exam: Present: normal lung sounds bilaterally. Absent: respiratory distress, wheezes Cardiovascular Exam: Present: regular rate, normal rhythm, normal heart sounds GI/Abdominal exam: Present: soft, normal bowel sounds. Absent: distended, tenderness External exam: Present: normal external exam. Absent: erythema, swelling, lesions, lacerations, ecchymosis Speculum exam: Present: vaginal discharge (greyish vaginal discharge). Absent: cervical discharge By manual exam: Present: normal by manual exam, other (CAMERON BROWN PRESENT FOR EXAM). Absent: cervical motion tenderness Neurological exam: Present: alert Course Vital Signs 06/11/21 23:12 Temperature 97.9 F Pulse Rate 82 Respiratory 20 Rate Blood Pressure 104/64 O2 Sat by Pulse 99 Oximetry Medical Decision Making - Medical Decision Making Patient does have hemorrhoids noted. These are not thrombosed. She will be given an Anusol cream. Patient also has vaginal discharge. Cultures pending. Suspect bacterial vaginosis, we'll treat with Flagyl. However patient will need to follow up with her [employer]RIX SUPERVISOR. As previously discussed she does not have any abdominal pain or tenderness or fevers. She will return here for any worsening symptoms. Disposition Clinical Impression: Vaginal discharge, Hemorrhoids Disposition: HOME SELF-CARE Condition: Good Instructions (If sedation given, give patient instructions): Hemorrhoids (ED), Vaginal Discharge (ED) Additional Instructions: Take Flagyl as directed. Do not drink, days or taking this medication. Follow-up with your MATRIX SUPERVISOR regarding vaginal discharge. Follow-up with your surgeon regarding hemorrhoids. Use cream and do warm soaks in bathtub. Return to the emergency room for any worsening symptoms Prescriptions: Hydrocortisone [Anusol-Hc] 1 applic RECTAL TID #30 gm metroNIDAZOLE [Flagyl] 500 mg PO BID #14 tab Is patient prescribed a controlled substance at d/c from ED?: No Referrals: Efren Han MD [Primary Care Provider] - 1-2 days Lina Gaytan DO [Doctor of Osteopathic Medicine] - 1-2 days Time of Disposition: 01:02
[2021-06-12 01:19] LABS: Appearance,Urine Cloudy (Clear); Bacteria,Urine Rare /hpf; Bilirubin,Urine Negative (Negative); Blood,Urine Moderate (Negative); Color,Urine Yellow; Glucose,Urine (UA) Negative (Negative); Ketones,Urine Negative (Negative); Leukocyte Esterase,Urine Large (Negative); Mucus,Urine Few /hpf; Nitrite,Urine Negative (Negative); PH, Urine 5.5 (5.0-8.0); Protein,Urine Trace (Negative); RBC,Urine 33 /hpf (0-5); Specific Gravity,Urine 1.022 (1.001-1.035); Squamous Epithelial Cell,Urine 5 /hpf (0-4); Urobilinogen,Urine <2.0 mg/dL (<2.0); WBC,Urine >182 /hpf (0-5)
[2021-06-12 01:53] VITALS: BP 125/81; PULSE 70; RESP 16
[2021-06-13 13:41] LABS: C. trachomatis,PCR Negative (Neg,Equiv); Chlamydia trachomatis Source Vagina; N. gonorrhoeae,PCR Negative (Neg,Equiv); Neisseria Source Vagina
== END 2021-06-12 01:53 | disposition home or self-care (01) ==
LOC: EC 22:37
DX: O87.2 Hemorrhoids in the puerperium (principal); O90.89 Other complications of the puerperium, not elsewhere classified; N89.8 Other specified noninflammatory disorders of vagina; J45.909 Unspecified asthma, uncomplicated; F17.290 Nicotine dependence, other tobacco product, uncomplicated; Z88.0 Allergy status to penicillin
CPT/HCPCS: 81001; 87070; 87086; 87491; 87591; 87808; 99283

== ENCOUNTER 2025-02-12 03:33 | Emergency (ER) | payer OTHER ==
[2025-02-12 03:39] VITALS: BP 128/84; PULSE 80; RESP 18; TEMP 97.9
--- NOTE | 2025-02-12 03:42 | ED ---
Female Urogenital HPI - General Source: patient, RN notes reviewed, old records reviewed Mode of arrival: ambulatory Limitations: no limitations - History of Present Illness MD Complaint: vaginal bleeding, pelvic pain -: week(s) Location: suprapubic Severity: moderate Severity scale (1-10): 4 Consistency: intermittent Improves with: menstrual period Worsens with: none Patient : No Associated Symptoms: vaginal bleeding, abdominal pain - Related Data Sexually active: Yes <Beto Orellana - Last Filed: 02/12/25 04:29> <Ari Meléndez - Last Filed: 02/12/25 07:56> - General Chief complaint: Vaginal Bleeding Stated complaint: Vaginal bleeding Time Seen by Provider: 02/12/25 03:40 - History of Present Illness Initial comments: This is a 24 female to the ED co vaginal bleeding for months, no pain, no fevers, no signs of near syncope (Beto Orellana) - Related Data Home Medications Medication Instructions Recorded Confirmed Pnv No.95/Ferrous Fum/Folic AC 1 tab PO HS 01/06/21 05/12/21 [ Multivitamin Tablet] Previous Rx's Medication Instructions Recorded Ibuprofen [Motrin] 600 mg PO Q6HR PRN #30 tab 05/13/21 Hydrocortisone [Anusol-Hc] 1 applic RECTAL TID #30 gm 06/12/21 metroNIDAZOLE [Flagyl] 500 mg PO BID #14 tab 06/12/21 Allergies Allergy/AdvReac Type Severity Reaction Status Date / Time amoxicillin [Amoxicillin] Allergy Rash/Hives Verified 02/12/25 03:39 Review of Systems ROS Other: All systems not noted in ROS Statement are negative. <Beto Orellana - Last Filed: 02/12/25 04:29> ROS Other: All systems not noted in ROS Statement are negative. <Ari Meléndez - Last Filed: 02/12/25 07:56> ROS Statement: Those systems with pertinent positive or pertinent negative responses have been documented in the HPI. Past Medical History Past Medical History: Asthma Additional Past Medical History / Comment(s): frequent syncope. Obstetric history: Blood type is A+, and buys negative, rubella nonimmune, hepatitis B negative, HIV nonreactive, GBS negative. History of Any Multi-Drug Resistant Organisms: None Reported Past Surgical History: Ear Surgery Past Anesthesia/Blood Transfusion Reactions: No Reported Reaction Past Psychological History: Anxiety, Bipolar, Depression Smoking Status: Vaper Past Alcohol Use History: None Reported Past Drug Use History: None Reported - Past Family History Mother Family Medical History: No Reported History <Beto Orellana - Last Filed: 02/12/25 04:29> General Exam Limitations: no limitations General appearance: alert, in no apparent distress Head exam: Present: atraumatic, normocephalic, normal inspection Eye exam: Present: normal appearance, PERRL, EOMI. Absent: scleral icterus, conjunctival injection, periorbital swelling ENT exam: Present: normal exam, mucous membranes moist Neck exam: Present: normal inspection. Absent: tenderness, meningismus, lymphadenopathy Respiratory exam: Present: normal lung sounds bilaterally. Absent: respiratory distress, wheezes, rales, rhonchi, stridor Cardiovascular Exam: Present: regular rate, normal rhythm, normal heart sounds. Absent: systolic murmur, diastolic murmur, rubs, gallop, clicks GI/Abdominal exam: Present: soft, normal bowel sounds. Absent: distended, tenderness, guarding, rebound, rigid Extremities exam: Present: normal inspection, full ROM, normal capillary refill. Absent: tenderness, pedal edema, joint swelling, calf tenderness Back exam: Present: normal inspection Neurological exam: Present: alert, oriented X3, CN II-XII intact Psychiatric exam: Present: normal affect, normal mood Skin exam: Present: warm, dry, intact, normal color. Absent: rash <Beto Orellana - Last Filed: 02/12/25 04:29> Course <Beto Orellana - Last Filed: 02/12/25 04:29> Vital Signs 02/12/25 03:37 Temperature 97.9 F Pulse Rate 80 Respiratory 18 Rate Blood Pressure 128/84 O2 Sat by Pulse 98 Oximetry - Reevaluation(s) Reevaluation #1: 02/12/25 03:41 Medical records reviewed (Beto Orellana) Reevaluation #4: Was pt. sent in by a medical professional or institution (, PA, NATIONAL EXPANSION RECRUITER, urgent care, hospital, or [facility]...) When possible be specific @ -no Did you speak to anyone other than the patient for history (EMS, parent, family, police, friend...)? What history was obtained from this source @ -no Did you review nursing and triage notes (agree or disagree)? Why? @ -agree Are old charts reviewed (outside hosp., previous admission, EMS record, old EKG, old radiological studies, urgent care reports/EKG's, [facility] records)? Report findings @ -yes Differential Diagnosis (chest pain, altered mental status, abdominal pain women, abdominal pain men, vaginal bleeding, weakness, fever, dyspnea, syncope, headache, dizziness, GI bleed, back pain, seizure, CVA, palpatations, mental health, musculoskeletal)? @ -prior EKG interpreted by me (3pts min.). @ -yes X-rays interpreted by me (1pt min.). @ -yes negative for acute disease CT interpreted by me (1pt min.). @ -no U/S interpreted by me (1pt. min.). @ -no What testing was considered but not performed or refused? (CT, X-rays, U/S, labs)? Why? @ -none What meds were considered but not given or refused? Why? @ -none Did you discuss the management of the patient with other professionals (professionals i.e. , PA, NATIONAL EXPANSION RECRUITER, lab, RT, psych nurse, hospice social worker, nurse case management, teacher, customer service officer, nurse case management)? Give summary @ -no Was smoking cessation discussed for >3mins.? @ -no Was critical care preformed (if so, how long)? @ -no Were there social determinants of health that impacted care today? How? (Dean elessness, low income, unemployed, alcoholism, drug addiction, transportation, low edu. Level, literacy, decrease access to med. care, residential, rehab)? @ -none Was there de-escalation of care discussed even if they declined (Discuss DNR or withdrawal of care, Hospice)? DNR status @ -no What co-morbidities impacted this encounter? (DM, HTN, Smoking, COPD, CAD, Cancer, CVA, ARF, Chemo, Hep., AIDS, mental health diagnosis, sleep apnea, morbid obesity)? @ -none Was patient admitted / discharged? Hospital course, mention meds given and route, prescriptions, significant lab abnormalities, going to OR and other pertinent info. @ - Undiagnosed new problem with uncertain prognosis? @ -no Drug Therapy requiring intensive monitoring for toxicity (Heparin, Nitro, Insulin, Cardizem)? @ -no Were any procedures done? @ -no Diagnosis/symptom? @ - Acute, or Chronic, or Acute on Chronic? @ -Acute Uncomplicated (without systemic symptoms) or Complicated (systemic symptoms)? @ -Complicated Side effects of treatment? @ -no Exacerbation, Progression, or Severe Exacerbation? @ -exacerbation Poses a threat to life or bodily function? How? (Chest pain, [place], [place], pneumonia, PE, COPD, DKA, ARF, appy, cholecystitis, CVA, Diverticulitis, Homicidal, Suicidal, threat to staff... and all critical care pts) @ -yes (Beto Orellana) Medical Decision Making - Lab Data Result diagrams: 02/12/25 03:56 <Beto Orellana - Last Filed: 02/12/25 04:29> - Lab Data Result diagrams: 02/12/25 03:56 02/12/25 03:56 <Ari Meléndez - Last Filed: 02/12/25 07:56> - Lab Data Lab Results 02/12/25 02/12/25 02/12/25 Range/Units 03:56 03:56 03:56 WBC 6.64 (4.50-10.00) 10*3/uL RBC 4.90 (4.10-5.20) 10*6/uL Hgb 14.8 (12.0-15.0) g/dL Hct 42.8 (37.2-46.3) % MCV 87.3 (80.0-97.0) fL MCH 30.2 (27.0-32.0) pg MCHC 34.6 (32.0-37.0) g/dL Plt Count 252 (140-440) 10*3/uL MPV 10.9 (9.5-12.2) fL Immature Gran % (Auto) 0.2 % Neutrophils % 58.0 % Lymphocytes % 34.9 % Monocytes % 5.3 % Eosinophils % 1.1 % Basophils % 0.5 % Immature Gran # 0.01 (0.00-0.04) 10*3/uL Neutrophils # 3.86 (1.80-7.70) 10*3/uL Lymphocytes # 2.32 (0.90-5.00) 10*3/uL Monocytes # 0.35 (0.20-1.00) 10*3/uL Eosinophils # 0.07 (0.04-0.35) 10*3/uL Basophils # 0.03 (0.00-0.10) 10*3/uL PT 11.5 (10.0-12.5) sec INR 1.0 (<1.2) APTT 24.0 (22.0-30.0) sec Sodium 139 (137-145) mmol/L Potassium 4.2 (3.5-5.1) mmol/L Chloride 102 (98-107) mmol/L Carbon Dioxide 24 (22-30) mmol/L Anion Gap 13 mmol/L BUN 19 H (7-17) mg/dL Creatinine 0.74 (0.52-1.04) mg/dL Est GFR (CKD-EPI)AfAm >90 (>60 ml/min/1.73 sqM) Est GFR (CKD-EPI)NonAf >90 (>60 ml/min/1.73 sqM) Glucose 95 (74-99) mg/dL Calcium 10.2 (8.4-10.2) mg/dL Total Bilirubin 0.6 (0.2-1.3) mg/dL AST 25 (14-36) U/L ALT 17 (4-34) U/L Alkaline Phosphatase 63 (38-126) U/L Total Protein 7.9 (6.3-8.2) g/dL Albumin 5.1 H (3.5-5.0) g/dL Urine Color Urine Appearance (Clear) Urine pH (5.0-8.0) Ur Specific Revere (1.001-1.035) Urine Protein (Negative) Urine Glucose (UA) (Negative) Urine Ketones (Negative) Urine Blood (Negative) Urine Nitrite (Negative) Urine Bilirubin (Negative) Urine Urobilinogen (<2.0) mg/dL Ur Leukocyte Esterase (Negative) Urine RBC (0-5) /hpf Urine WBC (0-5) /hpf Ur Squamous Epith Cells (0-4) /hpf Ur Transition Epith Cell (0-1) /hpf Urine Bacteria (None) /hpf Hyaline Casts (0-2) /lpf Urine Mucus (None) /hpf Urine HCG, Qual (Not Detectd) Blood Type Blood Type Recheck Bld Type Recheck Status Antibody Screen Spec Expiration Date 02/12/25 02/12/25 02/12/25 Range/Units 03:56 04:00 04:00 WBC (4.50-10.00) 10*3/uL RBC (4.10-5.20) 10*6/uL Hgb (12.0-15.0) g/dL Hct (37.2-46.3) % MCV (80.0-97.0) fL MCH (27.0-32.0) pg MCHC (32.0-37.0) g/dL Plt Count (140-440) 10*3/uL MPV (9.5-12.2) fL Immature Gran % (Auto) % Neutrophils % % Lymphocytes % % Monocytes % % Eosinophils % % Basophils % % Immature Gran # (0.00-0.04) 10*3/uL Neutrophils # (1.80-7.70) 10*3/uL Lymphocytes # (0.90-5.00) 10*3/uL Monocytes # (0.20-1.00) 10*3/uL Eosinophils # (0.04-0.35) 10*3/uL Basophils # (0.00-0.10) 10*3/uL PT (10.0-12.5) sec INR (<1.2) APTT (22.0-30.0) sec Sodium (137-145) mmol/L Potassium (3.5-5.1) mmol/L Chloride (98-107) mmol/L Carbon Dioxide (22-30) mmol/L Anion Gap mmol/L BUN (7-17) mg/dL Creatinine (0.52-1.04) mg/dL Est GFR (CKD-EPI)AfAm (>60 ml/min/1.73 sqM) Est GFR (CKD-EPI)NonAf (>60 ml/min/1.73 sqM) Glucose (74-99) mg/dL Calcium (8.4-10.2) mg/dL Total Bilirubin (0.2-1.3) mg/dL AST (14-36) U/L ALT (4-34) U/L Alkaline Phosphatase (38-126) U/L Total Protein (6.3-8.2) g/dL Albumin (3.5-5.0) g/dL Urine Color Yellow Urine Appearance Clear (Clear) Urine pH 5.5 (5.0-8.0) Ur Specific Revere 1.032 (1.001-1.035) Urine Protein Trace H (Negative) Urine Glucose (UA) Negative (Negative) Urine Ketones Trace H (Negative) Urine Blood Negative (Negative) Urine Nitrite Negative (Negative) Urine Bilirubin Negative (Negative) Urine Urobilinogen <2.0 (<2.0) mg/dL Ur Leukocyte Esterase Trace H (Negative) Urine RBC 2 (0-5) /hpf Urine WBC 6 H (0-5) /hpf Ur Squamous Epith Cells 3 (0-4) /hpf Ur Transition Epith Cell <1 (0-1) /hpf Urine Bacteria Rare H (None) /hpf Hyaline Casts 9 H (0-2) /lpf Urine Mucus Many H (None) /hpf Urine HCG, Qual Not Detected (Not Detectd) Blood Type A Positive Blood Type Recheck A Pos Bld Type Recheck Status No Antibody Screen NEGATIVE Spec Expiration Date 02/15/2025 - 2355 Disposition <Beto Orellana B - Last Filed: 02/12/25 04:29> Is patient prescribed a controlled substance at d/c from ED?: No Time of Disposition: 07:56 <Ari Meléndez - Last Filed: 02/12/25 07:56> Clinical Impression: Vaginal bleeding Disposition: HOME SELF-CARE Condition: Good Instructions (If sedation given, give patient instructions): Dysmenorrhea (ED) Referrals: Efren Han MD [Primary Care Provider] - 1-2 days
[2025-02-12] MEDS: SODIUM CHLORIDE 0.9% 500 ML 500 ML IV ONE (04:06)
[2025-02-12 04:22] LABS: Basophils # (A) 0.03 10*3/uL (0.00-0.10); Basophils % (A) 0.5 %; Eosinophils # (A) 0.07 10*3/uL (0.04-0.35); Eosinophils % (A) 1.1 %; HCT 42.8 % (37.2-46.3); HGB 14.8 g/dL (12.0-15.0); Lymphocytes # (A) 2.32 10*3/uL (0.90-5.00); Lymphocytes % (A) 34.9 %; MCH 30.2 pg (27.0-32.0); MCHC 34.6 g/dL (32.0-37.0); MCV 87.3 fL (80.0-97.0); Monocytes # (A) 0.35 10*3/uL (0.20-1.00); Monocytes % (A) 5.3 %; Neutrophils # (A) 3.86 10*3/uL (1.80-7.70); Neutrophils % (A) 58.0 %; Platelet Count 252 10*3/uL (140-440); RBC 4.90 10*6/uL (4.10-5.20); RDW 13.0 % (11.5-14.5); WBC 6.64 10*3/uL (4.50-10.00)
[2025-02-12 04:41] LABS: ALT 17 U/L (4-34); AST 25 U/L (14-36); African American GFR (CKD) >90 (>60 ml/min/1.73 sqM); Albumin 5.1 g/dL (3.5-5.0); Alkaline Phosphatase 63 U/L (38-126); Anion Gap 13 mmol/L; Blood Urea Nitrogen 19 mg/dL (7-17); Calcium 10.2 mg/dL (8.4-10.2); Carbon Dioxide 24 mmol/L (22-30); Chloride 102 mmol/L (98-107); Glucose 95 mg/dL (74-99); Non-African American GFR(CKD) >90 (>60 ml/min/1.73 sqM); Potassium 4.2 mmol/L (3.5-5.1); Sodium 139 mmol/L (137-145); Total Protein 7.9 g/dL (6.3-8.2)
[2025-02-12 04:51] LABS: INR 1.0 (<1.2); Partial Thromboplastin Time 24.0 sec (22.0-30.0); Prothrombin Time 11.5 sec (10.0-12.5)
[2025-02-12 04:57] LABS: Bacteria,Urine Rare /hpf; Bilirubin,Urine Negative (Negative); Blood,Urine Negative (Negative); Color,Urine Yellow; Glucose,Urine (UA) Negative (Negative); Hyaline Casts,Urine 9 /lpf (0-2); Ketones,Urine Trace (Negative); Leukocyte Esterase,Urine Trace (Negative); Mucus,Urine Many /hpf; Nitrite,Urine Negative (Negative); PH, Urine 5.5 (5.0-8.0); Protein,Urine Trace (Negative); RBC,Urine 2 /hpf (0-5); Specific Gravity,Urine 1.032 (1.001-1.035); Squamous Epithelial Cell,Urine 3 /hpf (0-4); Transitional Epi Cells,Urine <1 /hpf (0-1); Urobilinogen,Urine <2.0 mg/dL (<2.0); WBC,Urine 6 /hpf (0-5)
--- NOTE | 2025-02-12 07:49 | US ---
EXAMINATION TYPE: US transvaginal DATE OF EXAM: 02/12/2025 COMPARISON: NONE CLINICAL INDICATION: Female, 24 years old with history of vag bleeding; bleeding TECHNIQUE: Transvaginal (TV). FINDINGS: EXAM MEASUREMENTS: Uterus: 7.2 x 4.2 x 5.1 cm Endometrial Stripe: .6 cm Right Ovary: 4.2 x 2.0 x 2.7 cm Left Ovary: 3.6 x 1.7 x 2.3 cm 1. Uterus: Anteverted wnl 2. Endometrium: wnl 3. Right Ovary: wnl 4. Left Ovary: wnl Spectral, color and waveform doppler imaging shows good arterial and venous flow within the ovaries ; there is no evidence for ovarian torsion. 5. Bilateral Adnexa: wnl 6. Posterior cul-de-sac: wnl IMPRESSION: 1. No evidence for acute process. 2. Appropriate arterial and venous spectral waveforms to the ovaries. [facility], , 02/12/2025 7:46 AM
== END 2025-02-12 08:48 | disposition home or self-care (01) ==
LOC: EC 03:33
DX: N93.9 Abnormal uterine and vaginal bleeding, unspecified (principal); F17.290 Nicotine dependence, other tobacco product, uncomplicated; Z88.0 Allergy status to penicillin
CPT/HCPCS: 36415; 76830; 80053; 81001; 81025; 85025; 85610; 85730; 86850; 86900; 86901; 93975; 96360; 99284